=== PATIENT | female | born 1980 | race Caucasian/White ===

== ENCOUNTER 2019-03-26 20:31 | Emergency (ER) | payer MEDICAID ==
[~2019-03-26] VITALS: Ht 160 cm; Wt 53.0 kg
[2019-03-26] MEDS ORDERED: OLANZAPINE 10 MG/VIAL IM STA (23:03)
[2019-03-26 23:10] LABS: CLARITY URINE CLEAR (CLEAR); COLOR URINE YELLOW (YELLOW); KETONES URINE NEGATIVE (NEGATIVE); LEUKOCYTE ESTERASE URINE 1+ (NEGATIVE); NITRITE URINE NEGATIVE (NEGATIVE); OCCULT BLOOD URINE NEGATIVE (NEGATIVE); PROTEIN URINE NEGATIVE (NEGATIVE); SPECIFIC GRAVITY URINE 1.002 (1.005-1.030); UROBILINOGEN URINE 0.2 E.U./dL (0.2-1.0)
[2019-03-26 23:20] LABS: *AMPHETAMINES SCREEN URINE NEGATIVE (NEGATIVE)
[2019-03-26 23:21] LABS: *BARBITURATES SCREEN URINE NEGATIVE (NEGATIVE); *BENZODIAZEPINES SCREEN URINE NEGATIVE (NEGATIVE); *COCAINE SCREEN URINE NEGATIVE (NEGATIVE); METHADONE URINE SCREEN NEGATIVE (NEGATIVE); OPIATES URINE SCREEN NEGATIVE (NEGATIVE)
[2019-03-26 23:22] LABS: CANNABINOID URINE SCREEN NEGATIVE (NEGATIVE); PHENCYCLIDINE URINE SCREEN NEGATIVE (NEGATIVE)
[2019-03-27 00:50] LABS: BASOPHILS % 0.5 % (0.0-2.0); HEMATOCRIT. 37.5 % (36.0-48.0); HEMOGLOBIN. 12.5 g/dL (12.0-16.0); LYMPHOCYTES % 29.8 % (20.0-50.0); MEAN CORPUSCULAR HEMOGLOBIN 30.9 pg (28.0-32.0); MEAN CORPUSCULAR VOLUME 92.4 fL (81.0-99.0); MEAN PLATELET VOLUME 7.6 fl (7.4-10.4); MONOCYTES % 7.2 % (2.0-8.0); NEUTROPHILS % 59.5 % (40.0-76.0); PLATELET 235 x1000/uL (130-400); RED BLOOD CELL COUNT 4.05 mill/uL (4.2-5.4); RED CELL DISTRIBUTION WIDTH 12.3 % (11.6-14.6)
[2019-03-27 00:55] LABS: CHLORIDE 105 mEq/L (98-107)
[2019-03-27 01:01] LABS: ETHANOL BLOOD < 10 mg/dL
[2019-03-27] MEDS: CEPHALEXIN 250MG CAPSULE PO SCH ×3 (01:45→17:22)
[2019-03-27] MEDS ORDERED: LORAZEPAM 1MG TABLET PO ONE ×2 (15:45→20:00)
[2019-03-27] MEDS ORDERED: OLANZAPINE 10 MG/VIAL IM ONE (20:00)
[2019-03-28] MEDS: CEPHALEXIN 250MG CAPSULE PO SCH ×2 (09:27→17:00)
[2019-03-28] MEDS ORDERED: LORAZEPAM 1MG TABLET PO ONE (15:45)
[2019-03-28] MEDS ORDERED: PRAZOSIN HCL 1MG CAPSULE PO ONE (21:45)
[2019-03-28] MEDS ORDERED: RISPERIDONE 1MG TABLET PO SCH (22:30)
[2019-03-28] MEDS: TRAZODONE HCL 50MG TABLET PO SCH (22:49)
[2019-03-29] MEDS ORDERED: OLANZAPINE 10 MG/VIAL IM ONE (00:30)
[2019-03-29] MEDS: CEPHALEXIN 250MG CAPSULE PO SCH ×2 (10:32→16:29)
[2019-03-29] MEDS ORDERED: HYDROXYZINE 10 MG TABLET PO STA (14:15)
[2019-03-29] MEDS: TRAZODONE HCL 50MG TABLET PO SCH (22:20)
[2019-03-29] MEDS ORDERED: OLANZAPINE 5MG TABLET ODT PO ONE (23:30)
[2019-03-30] MEDS ORDERED: OLANZAPINE 5MG TABLET ODT PO NR (00:30)
[2019-03-30] MEDS: CEPHALEXIN 250MG CAPSULE PO SCH (09:24)
[2019-03-30 11:20] VITALS: BP 130/67
== END 2019-03-30 12:21 | disposition home or self-care (01) ==
LOC: ER 20:31
DX: R45.851 Suicidal ideations (principal); R44.1 Visual hallucinations; R44.0 Auditory hallucinations; N39.0 Urinary tract infection, site not specified; F41.9 Anxiety disorder, unspecified; F31.9 Bipolar disorder, unspecified; F17.200 Nicotine dependence, unspecified, uncomplicated; F43.10 Post-traumatic stress disorder, unspecified; Z98.890 Other specified postprocedural states
CPT/HCPCS: 36415; 80305; 81003; 81025; 96372; 99284; J3490